=== PATIENT | female | born 1940 | race Caucasian/White ===

== ENCOUNTER 2020-12-04 12:50 | Inpatient (IN) | payer OTHER ==
[~2020-12-04] VITALS: Ht 167.6 cm; Wt 8.6 kg
[~2020-12-04 12:50] MED LIST: AVAPRO300 MG PO; IRBESARTAN150 MG PO; LASIX40 MG PO; SERTRALINE HCL50 MG PO; TIROSINT25 MCG PO; [UNRECOGNIZED DRUG - OTHER]
[2020-12-16] MEDS ORDERED: AVAPRO300 MG (08:44)
[2020-12-16] MEDS ORDERED: VITAMIN B12 PO (08:47)
[2020-12-16] MEDS ORDERED: VITAMIN E PO (08:48)
[2020-12-16] MEDS ORDERED: VITAMIN D310 MCG/1 M (08:48)
[2020-12-18] MEDS ORDERED: MONTELUKAST SOD10 MG (07:50)
[2020-12-18] MEDS ORDERED: INTEGRA PLUS C1 EACH (07:50)
[2020-12-18] MEDS ORDERED: FLONASE16 GM (07:50)
[2020-12-18] MEDS ORDERED: XARELTO10 M1 (07:50)
[2020-12-18] MEDS ORDERED: IRBESARTAN150 MG (07:50)
[2020-12-18] MEDS ORDERED: RAZADYNE ER16 MG (07:50)
[2020-12-18] MEDS ORDERED: RESTASIS1 EACH (07:51)
[2020-12-18] MEDS ORDERED: SYSTANE ULTRA 010 ML (07:51)
[2020-12-18] MEDS ORDERED: FLUOROMETHOLONE5 ML (07:51)
[2020-12-18] MEDS ORDERED: VITAMIN E400 UNI7 (07:52)
[2020-12-18] MEDS ORDERED: MELATONIN5 M2 (07:52)
[2020-12-18] MEDS ORDERED: VITAMIN B-121000 MC4 (07:52)
[2020-12-21] MEDS ORDERED: INTEGRA PLUS C1 EACH PO (11:09)
[2020-12-21] MEDS ORDERED: BACTRIM DS TAB1 EACH PO (11:09)
[2020-12-21] MEDS ORDERED: XARELTO10 MG PO (11:09)
[2020-12-21] MEDS ORDERED: OXYC1TAB9 PO (11:09)
== END 2020-12-21 18:40 | DRG 468 ==
LOC: EDBD → CIR.AMB 12-09 08:42 → EDSTATUS 12-09 08:54 → SURH 12-09 08:57 → SURG 12-18 06:15 → O/R 12-18 06:15 → SURH 12-18 07:00 → O/R 12-18 09:09 → SURG 12-18 17:11
PROVIDERS: ADMIT Orthopaedic Surgery Sports Medicine; ATTEND Orthopaedic Surgery Sports Medicine
PROC: 0SRU0J9 Replacement of Left Knee Joint, Femoral Surface with Synthetic Substitute, Cemented, Open Approach (ICD-10-PCS; 2020-12-18)
PROC: 3E0F7SF Introduction of Other Gas into Respiratory Tract, Via Natural or Artificial Opening (ICD-10-PCS; 2020-12-18)
PROC: 0SPU0JZ Removal of Synthetic Substitute from Left Knee Joint, Femoral Surface, Open Approach (ICD-10-PCS; principal; 2020-12-18 07:00)
PROC: 30233N1 Transfusion of Nonautologous Red Blood Cells into Peripheral Vein, Percutaneous Approach (ICD-10-PCS; 2020-12-19)
DX: S72.452A Displaced supracondylar fracture without intracondylar extension of lower end of left femur, initial encounter for closed fracture (principal); X58.XXXA Exposure to other specified factors, initial encounter; Y93.89 Activity, other specified; Y92.89 Other specified places as the place of occurrence of the external cause; Y99.8 Other external cause status; M17.12 Unilateral primary osteoarthritis, left knee; D64.9 Anemia, unspecified